=== PATIENT | female | born 1990 | race American Indian/Alaskan Native ===

== ENCOUNTER 2020-12-26 11:06 | Emergency (ER) | payer SELFPAY ==
[2020-12-26 11:13] VITALS: BP 137/82
--- NOTE | 2020-12-26 19:50 | Emergency Department Report ---
ED ENT HPI - General Chief complaint: Dental/Oral Stated complaint: TOOTH PAIN Time Seen by Provider: 12/26/20 12:01 Source: patient Mode of arrival: Ambulatory Limitations: No Limitations - History of Present Illness Initial comments: Patient is a 30-year-old female presents emergency room with complaints of left upper dental pain that worsened over the last few days. States that the pain initially began in May. States that she is scheduled to have oral surgery on January 15. She states the last couple weeks the pain has been increasing but the last few days and has been giving her more trouble. She states that she feels like the gumline is swollen. She denies any fever, chills, vomiting, diarrhea, difficulty swallowing, difficulty breathing, facial swelling. No past medical history. No allergies medications. Last menstrual cycle a week ago. - Related Data Previous Rx's Medication Instructions Recorded Last Taken Type Chlorhexidine Mouthwash [Peridex] 15 ml MM BID #1 bottle 12/26/20 Unknown Rx Naproxen [EC-Naprosyn] 500 mg PO BID PRN #20 tablet. 12/26/20 Unknown Rx Penicillin Vk [Veetids TAB] 500 mg PO QID 7 Days #56 tablet 12/26/20 Unknown Rx Allergies Allergy/AdvReac Type Severity Reaction Status Date / Time No Known Allergies Allergy Unverified 12/26/20 11:10 ED Dental HPI - General Chief complaint: Dental/Oral Stated complaint: TOOTH PAIN Time Seen by Provider: 12/26/20 12:01 Source: patient Mode of arrival: Ambulatory Limitations: No Limitations - Related Data Previous Rx's Medication Instructions Recorded Last Taken Type Chlorhexidine Mouthwash [Peridex] 15 ml MM BID #1 bottle 12/26/20 Unknown Rx Naproxen [EC-Naprosyn] 500 mg PO BID PRN #20 tablet. 12/26/20 Unknown Rx Penicillin Vk [Veetids TAB] 500 mg PO QID 7 Days #56 tablet 12/26/20 Unknown Rx Allergies Allergy/AdvReac Type Severity Reaction Status Date / Time No Known Allergies Allergy Unverified 12/26/20 11:10 ED Review of Systems ROS: Stated complaint: TOOTH PAIN Other details as noted in HPI Comment: All other systems reviewed and negative ED Past Medical Hx - Past Medical History Previous Medical History?: No - Surgical History Past Surgical History?: No - Social History Smoking Status: Current Every Day Smoker Substance Use Type: None - Medications Home Medications: Home Medications Medication Instructions Recorded Confirmed Last Taken Type Chlorhexidine Mouthwash [Peridex] 15 ml MM BID #1 bottle 12/26/20 Unknown Rx Naproxen [EC-Naprosyn] 500 mg PO BID PRN #20 tablet. 12/26/20 Unknown Rx Penicillin Vk [Veetids TAB] 500 mg PO QID 7 Days #56 tablet 12/26/20 Unknown Rx ED Physical Exam - General Limitations: No Limitations General appearance: alert, in no apparent distress - Head Head exam: Present: atraumatic, normocephalic - Eye Eye exam: Present: normal appearance - ENT ENT exam: Present: mucous membranes moist, other (several dental carries present, there are three dental carries present to the left upper molars with holes present in the teeth, the adjacent gumline is edematous, uvula is midline, no uvular edema or deviation, no trismus, no tongue elevation, no muffled voice, no submandibular edema) - Neurological Exam Neurological exam: Present: alert, oriented X3 - Psychiatric Psychiatric exam: Present: normal affect, normal mood - Skin Skin exam: Present: warm, dry, intact ED Course Vital Signs 12/26/20 12/26/20 11:12 19:45 Temperature 98.9 F Pulse Rate 111 H 83 Respiratory 16 Rate Blood Pressure 137/82 O2 Sat by Pulse 98 100 Oximetry ED Medical Decision Making - Medical Decision Making Patient is a 30-year-old female presents emergency room with complaints of left upper dental pain that worsened over the last few days. States that the pain initially began in May. States that she is scheduled to have oral surgery on January 15. She states the last couple weeks the pain has been increasing but the last few days and has been giving her more trouble. She states that she feels like the gumline is swollen. She denies any fever, chills, vomiting, diarrhea, difficulty swallowing, difficulty breathing, facial swelling. No past medical history. No allergies medications. Last menstrual cycle a week ago. Initial vitals with tachycardia which improved upon repeat. On exam:several dental carries present, there are three dental carries present to the left upper molars with holes present in the teeth, the adjacent gumline is edematous, uvula is midline, no uvular edema or deviation, no trismus, no tongue elevation, no muffled voice, no submandibular edema. Examination appears consistent with infected dental caries, no signs of Roberto's, facial cellulitis, or facial abscess at this time. Patient given prescription for medications. Advised patient Please use medication as prescribed. Please brush teeth with Sensodyne toothpaste. May use Orajel. May use a dental putty but please do not swallow. May gargle with warm salt water. Follow-up with your primary care doctor. Follow-up with your dentist/oral surgeon. Return to emergency room for any new or worsening symptoms. Critical care attestation.: If time is entered above; I have spent that time in minutes in the direct care of this critically ill patient, excluding procedure time. ED Disposition Clinical Impression: Infected dental caries Disposition: HOME / SELF CARE / HOMELESS Is pt being admited?: No Does the pt Need Aspirin: No Condition: Stable Additional Instructions: Please use medication as prescribed. Please brush teeth with Sensodyne toothpaste. May use Orajel. May use a dental putty but please do not swallow. May gargle with warm salt water. Follow-up with your primary care doctor. Follow-up with your dentist/oral surgeon. Return to emergency room for any new or worsening symptoms. Prescriptions: Naproxen [EC-Naprosyn] 500 mg PO BID PRN #20 tablet.dr LOWERY Reason: pain Chlorhexidine Mouthwash [Peridex] 15 ml MM BID #1 bottle Penicillin Vk [Veetids TAB] 500 mg PO QID 7 Days #56 tablet Referrals: PRIMARY CARE,MD [Primary Care Provider] - 3-5 Days your, dentist [Other] - 3-5 Days your, oral surgeon [Other] - 3-5 Days Forms: Work/School Release Form(ED) Time of Disposition: 19:48 Print Language: DIVEHI
== END 2020-12-26 19:50 | disposition home or self-care (01) ==
LOC: ED 11:06
DX: K02.9 Dental caries, unspecified (principal); F17.200 Nicotine dependence, unspecified, uncomplicated; Z79.899 Other long term (current) drug therapy
CPT/HCPCS: 99282